=== PATIENT | male | born 1990 | race African-American/Black ===

== ENCOUNTER 2017-12-30 01:51 | Emergency (ER) | payer OTHER ==
[~2017-12-30] VITALS: Ht 177.8 cm; Wt 81.7 kg
[2017-12-30 02:00] VITALS: BP 146/87
== END 2017-12-30 02:37 | disposition home or self-care (01) ==
LOC: ER 01:51
DX: S06.0X0A Concussion without loss of consciousness, initial encounter (principal); W01.0XXA Fall on same level from slipping, tripping and stumbling without subsequent striking against object, initial encounter; Y93.89 Activity, other specified; Y92.89 Other specified places as the place of occurrence of the external cause; Y99.8 Other external cause status

== ENCOUNTER 2020-03-08 16:16 | Emergency (ER) | payer BC ==
[~2020-03-08] VITALS: Ht 175.3 cm; Wt 83.0 kg
[2020-03-08] MEDS ORDERED: NORFLEX100 MG PO (17:05)
[2020-03-08] MEDS ORDERED: NAPROSYN500 MG PO (17:05)
[2020-03-08 17:08] VITALS: BP 125/74
== END 2020-03-08 17:17 | disposition home or self-care (01) ==
LOC: ER 16:16
DX: M54.5 Low back pain (principal); R20.0 Anesthesia of skin; X50.9XXA Other and unspecified overexertion or strenuous movements or postures, initial encounter; Y93.89 Activity, other specified; Y92.69 Other specified industrial and construction area as the place of occurrence of the external cause; Y99.8 Other external cause status